=== PATIENT | male | born 1975 | race Two or more races ===

== ENCOUNTER 2021-01-05 12:13 | Emergency (ER) | payer BC, OTHER ==
[~2021-01-05] VITALS: Ht 180.3 cm; Wt 86.2 kg
[2021-01-05 13:47] VITALS: BP 146/107
[2021-01-05] MEDS ORDERED: CEPH-322 PO (14:06)
[2021-01-05] MEDS ORDERED: NAPR375T27 PO (14:06)
== END 2021-01-05 14:09 | disposition home or self-care (01) ==
LOC: ER 12:13
DX: S41.112A Laceration without foreign body of left upper arm, initial encounter (principal); X58.XXXA Exposure to other specified factors, initial encounter; Y93.89 Activity, other specified; Y92.89 Other specified places as the place of occurrence of the external cause; Y99.8 Other external cause status
CPT/HCPCS: 12004; 99283; J2001